=== PATIENT | female | born 1940 | race Caucasian/White ===

== ENCOUNTER 2023-03-06 05:11 | Observation (INO) ==
--- NOTE | 2023-01-28 11:12 | PAT Medication Instructions ---
Medication Instructions Date of Service January 28, 2023 Home Medications losartan 25 mg tablet 25 mg PO QAM rosuvastatin 5 mg tablet 5 mg PO QAM DO NOT take the morning of surgery losartan 25 mg tablet 25 mg PO QAM Take morning of surgery With a small sip of water, OTHERWISE NOTHING TO EAT OR DRINK AFTER MIDNIGHT: rosuvastatin 5 mg tablet 5 mg PO QAM Other Notes If you have any questions please call us at [phone] or [phone] or [phone] or [phone]
--- NOTE | 2023-02-03 13:03 | Anesthesiology Consultation ---
Date of Service February 03, 2023 Assessment & Plan (1) Encounter for pre-operative examination: Chart Review Chart Review: Acceptable Risk for Surgery and Patient seen in Pre Admission Testing - Due to age- patient is NOT an ideal OPJ candidate Per PAT appt on 02/03/23, patient denies any recent travel. No recent Covid exposures, Covid related symptoms, or recent Covid positive tests. Pt is vaccinated for Covid. Will leave to surgeon's discretion if preop Covid testing needed. Educated on importance of using Covid precautions one week prior to surgery Teaching & Discussion Pre-Anesthesia Teaching/Discussion Notes: Instructed NPO after midnight before surgery,except medications with 15 cc of water. Medication instructions provided according to the PAT guidelines. History Surgery Operation Date: 03/06/23 08:20 Proposed Procedures p Left Anterior Total Hip Arthroplasty - Michael Sierra DO Height/Weight Height: 5 ft 6 in Weight: 58.5 kg Allergies Allergy/AdvReac Type Severity Reaction Status Date / Time No Known Drug Allergies Allergy Unknown . Verified 01/27/23 16:04 Medications Home Medications Medication Instructions Recorded Confirmed Last Taken losartan 25 mg tablet 25 mg PO QAM 01/27/23 01/27/23 Unknown rosuvastatin 5 mg tablet 5 mg PO QAM 01/27/23 01/27/23 Unknown Past Medical History Medical History Hearing deficit Bilateral hearing aids HLD (hyperlipidemia) HTN (hypertension) Osteoarthritis Exercise / Class Metabolic Activity II 4-5 Yardwork/Stairs/Walk up hill (one flight of stairs - no chest pain or SOB ) Past Surgical History Surgical History History of cataract surgery History of colonoscopy History of D&C History of tonsillectomy History of total abdominal hysterectomy and bilateral salpingo-oophorectomy Past Anesthesia History No Hx of Anesthesia Complications and No Family Hx of Anesthesia Complications History of PONV No Hx of PONV and No Hx of Motion Sickness Social History Smoking Status: Never smoker Do You Dip or Chew Tobacco: No Hx Alcohol Use: Yes Alcohol type: beer and wine alcohol intake frequency: a few times a week Hx Substance Use: No substance use type: does not use Review of Systems Patient denies chest pain, shortness of breath, dyspnea on exertion, reflux, cough, wheezing, palpitations. No hx of seizures, stroke, TN, apnea/snoring. No hx of blood clots or blood transfusions Physical Exam Vital Signs VITALS BP 124/73 P 52 (chronic bradycardia- denies dizziness/presyncope/syncope) TEMP 97.9 SP02 97% RESP 16 Constitutional no acute distress ENMT Mouth: no TMJ clicking Thyromental Distance: > or= 3.5 Finger Breadths (3.5) Mallampati Class: I Missing molars Neck neck extension not limited Respiratory normal respiratory effort; no respiratory distress Auscultation: lungs clear to auscultation bilaterally; no wheezes Cardiovascular Rate/Rhythm: regular rate and regular rhythm Heart Sounds: no murmur Vessels: no carotid bruit Musculoskeletal Spine: no pain with cervical ROM Extremities: extremities normal to inspection Psychiatric Orientation: alert Lab Results Anesthesia Preop Results Results Anesthesia Widget: WBC 5.91 K/ul (4.8-10.8) 02/03/23 Hgb 12.6 g/dl (12.0-16.0) 02/03/23 Hct 37.2 % (37.0-47.0) 02/03/23 Plt 159 K/uL (130-400) 02/03/23 Na 138 mmol/L (136-145) 02/03/23 K 4.8 mmol/L (3.5-5.1) 02/03/23 Cl 104 mmol/L (98-107) 02/03/23 CO2 29 mmol/L (21-32) 02/03/23 BUN 15 mg/dl (6-23) 02/03/23 Creat 0.72 mg/dl (0.6-1.2) 02/03/23 Glucose Level 73 mg/dl (70-99(Fasting)) 02/03/23 PT 10.9 Seconds (9.0-12.0) 02/03/23 PTT 27.6 Seconds (21.0-31.0) 02/03/23 INR 1.0 (0.9-1.1) 02/03/23 Blood Type O Positive 02/03/23 Antibody Screen NEGATIVE 02/03/23 Testing Electrocardiogram Date: 02/03/23 Marked sinus bradycardia at 47bpm Chest X-Ray Date: 02/03/23 Findings: + NAD
--- NOTE | 2023-03-05 06:53 | History & Physical Report ---
Date of Service March 05, 2023 Assessment & Plan (1) Osteoarthritis of left hip: We will proceed with a left anterior total of arthroplasty. Postoperatively she will be started on aspirin for DVT prophylaxis and kept overnight in the hospital for postop medical management. She plans to go back to [facility] at discharge. History of Present Illness Chief Complaint: Osteoarthritis of the left hip. Primary Care Provider: Harvinder Ha DO Leena is a pleasant 82-year-old female who has been dealing with chronic increasing left hip and groin pain. X-rays and clinical examination have been diagnostic for advanced osteoarthritis of the left hip. After failing conservative treatment, she has elected to proceed with a left anterior total hip arthroplasty. . Allergies Allergy/AdvReac Type Severity Reaction Status Date / Time No Known Drug Allergies Allergy Unknown . Verified 01/27/23 16:04 Home Medications Medication Instructions Recorded Confirmed Type losartan 25 mg tablet 25 mg PO QAM 01/27/23 01/27/23 History rosuvastatin 5 mg tablet 5 mg PO QAM 01/27/23 01/27/23 History Past Med/Surg History Medical History Hearing deficit Bilateral hearing aids HLD (hyperlipidemia) HTN (hypertension) Osteoarthritis Surgical History History of cataract surgery History of colonoscopy History of D&C History of tonsillectomy History of total abdominal hysterectomy and bilateral salpingo-oophorectomy Social History Smoking Status: Never smoker Second Hand Exposure: Yes (as a child); Do You Dip or Chew Tobacco: No; Hx Alcohol Use: Yes Alcohol type: beer and wine Hx Substance Use: No Preferred Language: Iranian Communication Ability: Effective Back Gray Cloth Washer Required: No Beliefs That Will Affect Care: None Current Living Situation: Spouse Feels Safe at Home: Yes Assistive Devices: Glasses and Hearing Aid - Bilateral Review of Systems All systems reviewed & are unremarkable except as noted in HPI & below. Physical Exam On physical examination left hip, she decreased range of motion. She has pain with forced internal/external rotation.. Constitutional WD/WN, vitals as above Eyes PERRL, conjunctivae normal, anicteric sclerae ENMT external ear and nose normal, oropharynx normal Neck trachea midline, no thyromegaly Respiratory normal respiratory effort, lungs clear to auscultation Cardiovascular RRR, no murmur, no edema Gastrointestinal (Abdomen) normal bowel sounds, soft, nontender, no hepatosplenomegaly Skin no rashes, warm and dry Psychiatric A+Ox3, euthymic affect Results & Data Results & Data Laboratory Results . Diagnostic Findings X-rays of the left hip show advanced osteoarthritis with joint space narrowing, osteophyte formation, and weth-at-wdrq articulation. PG Care Time/CCT Total # of Minutes Spent Total Time Spent with Patient: Total time spent is greater than 50% in coordination of care (as documented) at patient's floor/unit and/or counseling patient: Coding Level of Care Code None Diagnoses Osteoarthritis of left hip M16.12
[2023-03-06] MEDS ORDERED: FAMOTIDINE 20 MG TAB PO SCH (06:00)
[2023-03-06] MEDS ORDERED: GABAPENTIN 300 MG CAP PO SCH (06:00)
[2023-03-06] MEDS ORDERED: TRANEXAMIC ACID 1,000 MG **IV Intra-op IV SCH (06:00)
[2023-03-06] MEDS ORDERED: dexAMETHasone 4 MG TAB PO SCH (06:00)
[2023-03-06] MEDS ORDERED: ceFAZolin 2000MG 2,000 MG/15 ML SYR IV SCH (06:00)
[2023-03-06] MEDS ORDERED: LR 60ML/HR IV SCH (06:00)
[2023-03-06] MEDS ORDERED: TRANEXAMIC ACID 1,000 MG **IV Pre-op IV SCH (06:00)
[2023-03-06] MEDS ORDERED: LR 500ML BOLUS, THEN 15ML/HR IV SCH (06:00)
[2023-03-06] MEDS ORDERED: ACETAMINOPHEN 500 MG TAB PO SCH (06:00)
[2023-03-06] MEDS: ORTHO JOINT MIX INFIL SCH ×2 (06:07→07:34)
[2023-03-06] MEDS ORDERED: BUPIVACAINE 0.5 % 5 MG/1 ML PF 10ML VIAL ONE (06:14)
[2023-03-06] MEDS ORDERED: ORTHO JOINT ANESTHETIC ONE (06:32)
--- NOTE | 2023-03-06 06:33 | History & Physical Bridge Note ---
Date of Service March 06, 2023 History & Physical Bridge Note I have examined the patient, reviewed the History & Physical and in the interval since the performance of the History & Physical I have noted the following changes of clinical significance: no changes noted
[2023-03-06] MEDS ORDERED: ATROPINE SULFATE 0.1 MG/ML 10ML SYR IV PRN (06:36)
[2023-03-06] MEDS ORDERED: fentaNYL citrate PF 100 MCG/2 ML VIAL IV PRN (06:36)
[2023-03-06] MEDS ORDERED: ePHEDrine sulfate 50 MG/ML AMP IV PRN (06:36)
[2023-03-06] MEDS ORDERED: ONDANSETRON INJ 2 MG/ML 2 ML VIAL IV PRN ×2 (06:36→11:10)
[2023-03-06] MEDS ORDERED: fentaNYL citrate PF 100 MCG/2 ML VIAL ONE (06:40)
[2023-03-06] MEDS ORDERED: PROPOFOL IV EMULSION 10 MG/ML 20 ML VIAL IV ONE ×2 (07:19→07:53)
[2023-03-06] MEDS ORDERED: ONDANSETRON INJ 2 MG/ML 2 ML VIAL ONE (07:19)
[2023-03-06] MEDS ORDERED: ePHEDrine sulfate 50 MG/ML AMP ONE (07:20)
--- NOTE | 2023-03-06 08:03 | Operative Report ---
PG Post Operative Report Pre & Post Diagnosis Operation Date: 03/06/23 07:00 Pre-Op Diagnosis: Degenerative Joint Disease Left Hip Post-Op Diagnosis: Degenerative Joint Disease Left Hip I identified the patient and participated in the time-out.: Yes Procedure Operation Date: 03/06/23 07:00 Actual Procedures p Left Anterior Total Hip Arthroplasty, Uncemented(Left) - Michael Sierra DO Surgeon Michael Sierra DO Residential Electrician Michael Stewart PA-C Estimated Blood Loss 100 Findings Consistent with Post-Op Diagnosis Specimens Left femoral head Description of Procedure Implants used I used a ZimmerBiomet total hip arthroplasty system with a size 3 standard offset Avenir Complete stem, a 52 mm G7 cup with a 25mm screw, an E1 polyethylene liner, a 36 mm ceramic head with a 0 neck. Leena arrived at the hospital for the above procedure. She was seen in the preoperative holding area and the operative extremity was identified and signed. She was given a spinal anesthetic, a preoperative antibiotic, and TXA. She was then taken back to the operating room and laid on the table in the supine position. She was given basic sedation. The operative leg was secured to a Puristst leg positioner. The hip was then prepped and draped in sterile fashion. A timeout was done and the patient and the operative extremity was properly identified. An anterior approach was used. Dissection was taken down through the fascia and the tensor muscle belly was retracted laterally and the rectus was retracted medially. The circumflex vessels were identified and ligated. The capsule was then incised and tagged for later repair. The femoral neck was then cut and the femoral head was removed. The acetabulum was exposed. Time was spent doing a complete circumferential labral release. Sequential reaming of the acetabulum up to a size 51 reamer was done. Final reamings were done under fluoroscopy to ensure appropriate version. A Biomet 52 mm G7 cup was then impacted into place. A single 25 mm screw was placed. The E1 polyethylene liner was then snapped into place. Surrounding soft tissues were then injected with 100 cc of an orthopedic pain control cocktail. The proximal femur was then exposed. Sequential broaching up to a size 3 broach was done. Off that broach a size 36 head with a 0 neck was trialed. The hip was reduced and fluoroscopic images showed anatomic alignment of the implants in acceptable length. The broach was removed. The final size 3 standard offset Avenir Complete stem was then impacted into place. A ceramic 36 mm head with a 0 neck was then impacted onto the stem and the hip was reduced. Final fluoroscopic images showed anatomic alignment of the hip. The capsule was then closed with #1 Vicryl suture. A dilute betadyne lavage was then done for 3 minutes. The joint was then irrigated with normal saline solution. The fascia was closed with #1 PDS suture. Skin was closed with 2-0 Vicryl, rosamaria, and a Silverlon dressing. She was then transferred to a hospital bed and taken to the post anesthesia care unit in stable condition. She tolerated the procedure well. Michael Stewart PA-C, was present for the entire procedure. He was critical for patient positioning, prepping, draping, retraction exposure, wound closure and application of sterile dressing. I attest to the content of the Intraoperative Record and any orders documented therein. Any exceptions are noted below.
--- NOTE | 2023-03-06 08:18 | Fluoroscopy Report ---
FL hip LT 1V CLINICAL HISTORY: LEFT ANTERIOR HIP COMPARISON STUDY: Left hip radiograph November 19, 2022. FLUOROSCOPY TIME: 10 seconds. Ka, r: 1.0568 mGy FLUOROSCOPIC IMAGES: 2 FINDINGS: Fluoroscopy was provided during anterior total left hip arthroplasty. Expected alignment is noted. No fractures are identified. There are no unexpected radiopaque foreign bodies. IMPRESSION: Fluoroscopy provided during anterior total left hip arthroplasty. ACT 112: Negative or not required by law. Electronically signed by: Gt Duke M.D. 03/06/2023 8:17 AM
--- NOTE | 2023-03-06 09:13 | XRay Report ---
XR hip 1V LT w pelvis CLINICAL HISTORY: Postoperative evaluation. COMPARISON: Intraoperative fluoroscopic image of the left hip performed earlier today. Left hip radio graphs November 19, 2022. FINDINGS: Alignment of the total left hip arthroplasty is anatomic. There is no periprosthetic fract ure or unexpected radiopaque foreign body. Acetabular screw and skin rosamaria are noted. IMPRESSION: Expected findings following total left hip arthroplasty. ACT 112: Negative or not required by law. Electronically signed by: Gt Duke M.D. 03/06/2023 9:11 AM
[2023-03-06] MEDS ORDERED: oxyCODONE HCL IR 5 MG TAB (IMMEDIATE RELEASE) PO PRN (11:10)
[2023-03-06] MEDS ORDERED: MAGNESIUM HYDROXIDE SUSP 30 ML UDC PO PRN (11:10)
[2023-03-06] MEDS ORDERED: bisacodyL 10 MG SUPP PR PRN (11:10)
[2023-03-06] MEDS ORDERED: HYDROmorphone INJ 0.5 MG/0.5 ML SYR IV PRN (11:10)
[2023-03-06] MEDS ORDERED: NALOXONE HCL 0.4 MG/1 ML VIAL/CARP IV PRN (11:10)
[2023-03-06] MEDS ORDERED: METOCLOPRAMIDE HCL INJ 5 MG/ML 2 ML VIAL IV PRN (11:10)
[2023-03-06] MEDS: SODIUM CHLORIDE 0.9% 1000ML 1,000 ML IV SCH ×2 (11:33→20:00)
[2023-03-06] MEDS: ROSUVASTATIN CALCIUM 5 MG TAB PO SCH (11:36)
[2023-03-06] MEDS: LOSARTAN POTASSIUM 25 MG TAB PO SCH (11:49)
[2023-03-06] MEDS: MULTIVITAMIN TAB PO SCH (11:49)
[2023-03-06] MEDS: KETOROLAC TROMETHAMINE 15 MG/ML VIAL IV SCH ×3 (11:50→22:55)
[2023-03-06] MEDS: ASPIRIN 81 MG ECTAB PO SCH ×2 (11:50→20:00)
[2023-03-06] MEDS: DOCUSATE SODIUM 100 MG CAP PO SCH ×2 (11:50→20:00)
--- NOTE | 2023-03-06 13:13 | Anesthesiology Progress Note ---
Date of Service March 06, 2023 Anesthesia Post Procedure Vital Signs Vital Signs: Temp Pulse Pulse Resp BP Pulse Ox O2 Del Method 03/06/23 12:34 97.2 F L 72 16 119/72 94 Room Air 03/06/23 11:54 79 17 113/68 94 Room Air 03/06/23 11:16 97.5 F L 70 16 122/75 96 Room Air 03/06/23 10:30 65 21 117/70 94 Room Air 03/06/23 10:00 64 15 118/72 93 Room Air 03/06/23 09:00 63 17 134/79 92 Room Air 03/06/23 09:30 97.3 F L 61 23 133/78 96 Room Air 03/06/23 09:20 59 L 19 122/78 93 Room Air 03/06/23 09:10 71 20 140/82 95 Room Air 03/06/23 08:50 66 24 136/80 93 Room Air 03/06/23 08:40 63 20 126/78 96 Room Air 03/06/23 08:30 66 20 123/74 95 Room Air 03/06/23 08:21 97.2 F L 66 22 117/73 99 Room Air 03/06/23 05:43 Room Air 03/06/23 05:43 97.3 F L 55 L 20 139/84 97 Room Air Pain Intensity Left Hip: Pain Intensity: 4 Transfer of Care Handoff Completed per policy Notes Mental Status: alert / awake / arousable and participated in evaluation Patient Amnestic to Procedure: Yes Nausea / Vomiting: adequately controlled Pain: adequately controlled Airway Patency, RR, SpO2: stable & adequate BP & HR: stable & adequate Hydration State: stable & adequate Neuraxial Anesthesia: was administered and sensory block is resolving Anesthetic Complications: no major complications apparent and Pt Satisfied with anesthetic care
[2023-03-06] MEDS: ceFAZolin 2000MG 2,000 MG/15 ML SYR IV SCH ×2 (14:16→22:56)
[2023-03-06] MEDS: ACETAMINOPHEN 500 MG TAB PO SCH ×2 (14:16→22:56)
[2023-03-06] MEDS ORDERED: SENNA 8.6 MG TAB PO SCH (21:00)
[2023-03-07] MEDS: ACETAMINOPHEN 500 MG TAB PO SCH (05:24)
[2023-03-07] MEDS: KETOROLAC TROMETHAMINE 15 MG/ML VIAL IV SCH ×2 (05:24→10:47)
[2023-03-07] MEDS: ASPIRIN 81 MG ECTAB PO SCH (07:28)
[2023-03-07] MEDS: ROSUVASTATIN CALCIUM 5 MG TAB PO SCH (07:28)
[2023-03-07] MEDS: DOCUSATE SODIUM 100 MG CAP PO SCH (07:29)
[2023-03-07] MEDS: LOSARTAN POTASSIUM 25 MG TAB PO SCH (07:29)
[2023-03-07] MEDS: MULTIVITAMIN TAB PO SCH (07:29)
[2023-03-07] MEDS ORDERED: dexAMETHasone 4 MG TAB PO SCH (08:00)
--- NOTE | 2023-03-07 08:06 | Orthopedic Progress Note ---
Date of Service March 07, 2023 Assessment & Plan (1) Status post left hip replacement: Overall she is doing very well. She is not having much pain in the left hip. She will be seen by physical therapy today for ambulation and range of motion exercises. She is on aspirin for DVT prophylaxis. She can be discharged home later today. She will follow-up with orthopedics in 2 weeks. Martin Stern was seen and examined at bedside this morning. Overall she is doing very well. She is not having much pain in the left hip. She has been up and ambulating to the bathroom. She has no complaints.. Review of Systems All systems reviewed & are unremarkable except as noted in HPI & below. Physical Exam On physical examination left hip, the dressing is clean and dry. She is sitting in a chair at bedside. She has active dorsiflexion plantarflexion of her left ankle.. Results & Data Results & Data Laboratory Results . Diagnostic Findings Postoperative x-rays of the left hip show the prosthesis to be in anatomic alignment without any evidence of fracture, education, or loosening.. PG Care Time/CCT Total # of Minutes Spent Total Time Spent with Patient: Total time spent is greater than 50% in coordination of care (as documented) at patient's floor/unit and/or counseling patient: Coding Level of Care Code 72417 Post Operative Follow-Up Diagnoses Status post left hip replacement Z96.642
--- NOTE | 2023-03-07 08:07 | Discharge Summary ---
Date of Service March 07, 2023 Admission HPI (Per Admitting) Leena is a pleasant 82-year-old female who has been dealing with chronic increasing left hip and groin pain. X-rays and clinical examination have been diagnostic for advanced osteoarthritis of the left hip. After failing conservative treatment, she has elected to proceed with a left anterior total hip arthroplasty. . Admission Exam (Per Admitting) On physical examination left hip, she decreased range of motion. She has pain with forced internal/external rotation.. Principal Diagnosis Same as "Discharge Diagnosis" noted below under Discharge Instructions. Discharge Exam On physical examination left hip, the dressing is clean and dry. She is sitting in a chair at bedside. She has active dorsiflexion plantarflexion of her left ankle.. Discharge Data Procedures Performed Operation Date: 03/06/23 07:00 Actual Procedures p Left Anterior Total Hip Arthroplasty, Uncemented(Left) - Michael Sierra DO Ordered Studies 03/06/23 07:00 FL hip LT 1V Routine Hospital Course (1) Status post left hip replacement: On March 06, 2023 Leena arrived at [facility] and underwent a left hip replaced without complication. She had a spinal anesthetic. Postoperatively she was started on aspirin for DVT prophylaxis and transferred to the general orthopedic floors. Her hospital course was uneventful. On postop day #1, her vital signs were stable and her pain was well controlled. She was able to participate well with physical therapy doing ambulation and range of motion exercises. She was then discharged back to [facility].. She will follow-up with orthopedics in 2 weeks. PG Care Time/CCT Total # of Minutes Spent Total Time Spent with Patient: Total time spent is greater than 50% in coordination of care (as documented) at patient's floor/unit and/or counseling patient: Discharge Plan Discharge Items Patient Disposition: Home - Home Health Services Reason For Visit: DJD Left Hip Discharge Diagnosis: Left hip replacement Activity: Per Instructions section Non-emergency contact: Surgeon Call non-emergency contact if: your wound has increased redness and your wound has increased drainage Follow-up/Referrals: Anderson Mason MD [Primary Care Provider] - Diet: Regular Addtl Attending Provider Instructions: Activity and Therapy Recommendations: * If you are using [facility] then therapy will be provided at your home until they feel you have accomplished all of your goals. * If you are using [facility] then Physical Therapy will be provided until they feel you are ready to start Outpatient Physical Therapy. * If you are not using home therapy then Outpatient Physical Therapy should start about 3-5 days from your day of surgery. Therapy will last about 6-10 weeks * You were shown a series of exercises in the hospital. Do these exercises three times each day including the exercises you were shown in physical therapy. * Get up and walk several times each day.~ For the first four weeks, try not to stand or walk for more than one hour at a time. If you do stand or walk for more than one hour, you will not hurt anything, but your leg will likely swell.~~ * As you feel comfortable, you may change from the walker or crutches to a cane and~then to independent walking. Medications: * Narcotic You will likely be sent home from the hospital with a prescription for the narcotic pain medication that worked best throughout your stay. * Aspirin Most patients will be required to take Aspirin 81mg twice a day for 6 weeks after surgery. This is obtained [id number] and a prescription is not necessary. * Other medications may be prescribed for specific circumstances. If you have any questions, please call the office at . * Resume previous home medications unless otherwise instructed TEDs/Elastic Stockings: The white elastic stockings help limit swelling and prevent blood clots from forming in your legs. The more you wear them, the more they work. Wear them for six weeks. Dressing Care: Leave the Silverlon dressing in place for 7 days. After 7 days you may remove the dressing. If the incision is not draining then you may leave the rosamaria open to air. If there is a little bit of drainage or if the rosamaria are getting stuck on your clothing then cover the incision with a dry dressing. The rosamaria will be removed at your 2 week follow-up appointment. Showering: You may shower with the Silverlon dressing in place. Do not let the shower spray hit the dressing directly. Pat the Silverlon dressing dry. If the dressing becomes wet underneath, then simply remove the dressing. Keep the incision dry until you are 7 days out from the day of surgery. After 7 days you may remove the Silverlon dressing and shower with the rosamaria exposed. Let soapy water run over the rosamaria and pat them dry. Do not scrub or soak the incision. Things To Watch For: * Drainage from the incision site that occurs more than one week after your surgery. * Increased redness at the incision site. * Fever above 102 degrees Fahrenheit. * Unusual chest pain or shortness of breath. * Call [facility] at with any of the above problems Follow-Up Visit: Follow-up with Dr. Sierra's PA (Michael Stewart) 2-3 weeks after your day of surgery. He will remove your rosamaria and answer any questions. If you have any additional questions or concerns, Dr Sierra is usually in the office at the same time and will be available An appointment was probably scheduled when you signed-up for surgery in the office. If you have any questions call Office Instructions: More detailed instructions as well as Frequently Asked Questions were provided in a folder by our office when you signed-up for surgery. Please review these instructions when you get home. If you have any further questions or concerns, please feel free to call the office at [phone] Pending Studies at Discharge: No Stand-Alone Forms: My [facility] Employee Benefit Plans, Smoking Cessation Medications and DC Order Prescriptions: New oxycodone-acetaminophen [Percocet] 5-325 mg tablet 1 tab PO Q6H PRN (Reason: pain) Qty: 30 0RF aspirin 81 mg Tablet,Delayed Release (Dr/Ec) 81 mg PO BID 42 Days Qty: 0 0RF Continued losartan 25 mg Tablet 25 mg PO QAM rosuvastatin 5 mg Tablet 5 mg PO QAM Admission Data Admit Date/Time: 03/06/23 08:22 Attending Provider: Michael Sierra Admit Provider: Michael Sierra Primary Care Provider: Anderson Mason
== END 2023-03-07 13:48 ==
LOC: PACUINP 05:11 → ASU 05:11 → 3E 11:22